=== PATIENT | male | born 1980 | race Caucasian/White ===

== ENCOUNTER 2023-01-01 13:04 | Emergency (ER) | payer OTHER ==
[~2023-01-01] VITALS: Ht 175.3 cm; Wt 86.2 kg
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
[2023-01-01] MEDS ORDERED: ACETAMINOPHEN ES 500 MG TABLET ONE (13:58)
[2023-01-01] MEDS ORDERED: IBUPROFEN 600 MG TABLET ONE (13:59)
[2023-01-01] MEDS ORDERED: ACETAMINOPHEN ES 500 MG TABLET PO ONE (14:00)
[2023-01-01] MEDS ORDERED: IBUPROFEN 600 MG TABLET PO ONE (14:00)
[2023-01-01 15:34] VITALS: BP 126/81
--- NOTE | 2023-01-01 15:34 | NUR ---
Patient discharged to home in stable condition. Written and verbal after care instructions given. Patient verbalizes understanding of instruction.
== END 2023-01-01 15:35 ==
LOC: ER 13:11
DX: S02.2XXA Fracture of nasal bones, initial encounter for closed fracture (principal); S00.12XA Contusion of left eyelid and periocular area, initial encounter; Y04.0XXA Assault by unarmed brawl or fight, initial encounter; Y93.89 Activity, other specified; Y92.89 Other specified places as the place of occurrence of the external cause; Y99.8 Other external cause status
CPT/HCPCS: 70450-TC; 70486-TC